=== PATIENT | female | born 1950 | race Caucasian/White ===

== ENCOUNTER 2017-04-11 21:29 | Emergency (ER) | payer OTHER ==
[~2017-04-11] VITALS: Ht 152.4 cm; Wt 75.7 kg
[2017-04-11 22:02] VITALS: Ht 152.4 cm; Wt 75.7 kg
[2017-04-12 01:44] VITALS: BP 128/78
== END 2017-04-12 01:30 | disposition home or self-care (01) ==
LOC: ED 21:29
DX: N12 Tubulo-interstitial nephritis, not specified as acute or chronic (principal); I10 Essential (primary) hypertension; E78.00 Pure hypercholesterolemia, unspecified; E78.5 Hyperlipidemia, unspecified
CPT/HCPCS: J1885

== ENCOUNTER 2017-04-24 11:03 | Emergency (ER) | payer OTHER ==
[2017-04-24 11:54] LABS: CALCIUM 9.9 mg/dL (8.5-10.1); CARBON DIOXIDE 30.9 mmol/L (21-32); CHLORIDE SERUM 103 mmol/L (98-107); CREATININE SERUM 0.7 mg/dL (0.6-1.0); GFR1 > 60 mL/min; GLUCOSE SERUM 103 mg/dL (74-106); POTASSIUM SERUM 4.3 mmol/L (3.5-5.1); SODIUM SERUM 142 mmol/L (136-145)
[2017-04-24 12:00] LABS: ALBUMIN 3.8 g/dL (3.4-5.0); ALKALINE PHOSPHATASE 97 U/L (46-116); ALT/SGPT 48 U/L (14-59); AST/SGOT 22 U/L (15-37); BILIRUBIN TOTAL 0.3 mg/dL (0.20-1.00); TOTAL PROTEIN, SERUM 7.1 g/dL (6.4-8.2)
[2017-04-24 12:29] LABS: BASOPHIL % 0.4 % (0-2)
[2017-04-24 12:31] LABS: PLATELET COUNT 416 x10^3mcL (130-400); RED CELL DISTRIBUTION WIDTH 14.7 % (11.5-14.5)
[2017-04-24 13:06] VITALS: BP 140/71
== END 2017-04-24 13:06 | disposition home or self-care (01) ==
LOC: ED 11:03
PROVIDERS: Emergency Medicine
DX: R07.89 Other chest pain (principal); I10 Essential (primary) hypertension
CPT/HCPCS: 83880; J1885; J2405; Q0092

== ENCOUNTER 2019-09-06 21:10 | Emergency (ER) | payer OTHER ==
[~2019-09-06] VITALS: Ht 154.9 cm; Wt 79.9 kg
[2019-09-06 21:28] VITALS: Ht 154.9 cm; Wt 79.9 kg
[2019-09-06 22:36] VITALS: BP 137/77
== END 2019-09-06 22:05 | disposition home or self-care (01) ==
LOC: ED 21:10
DX: G44.209 Tension-type headache, unspecified, not intractable (principal); I10 Essential (primary) hypertension; E78.00 Pure hypercholesterolemia, unspecified; Z88.6 Allergy status to analgesic agent

== ENCOUNTER 2019-10-19 06:26 | Emergency (ER) | payer OTHER ==
[~2019-10-19] VITALS: Ht 157.5 cm; Wt 78.2 kg
[2019-10-19 06:41] VITALS: Ht 157.5 cm; Wt 78.2 kg
[2019-10-19 07:46] LABS: BASOPHIL % 0.3 % (0-2); PLATELET COUNT 341 x10^3mcL (130-400); RED CELL DISTRIBUTION WIDTH 13.9 % (11.5-14.5)
[2019-10-19 08:15] LABS: CALCIUM 9.5 mg/dL (8.5-10.1); CARBON DIOXIDE 25.5 mmol/L (21-32); CHLORIDE SERUM 104 mmol/L (98-107); CREATININE SERUM 1.1 mg/dL (0.6-1.0); GLUCOSE SERUM 135 mg/dL (74-106); POTASSIUM SERUM 4.3 mmol/L (3.5-5.1); SODIUM SERUM 140 mmol/L (136-145)
[2019-10-19 08:20] LABS: ALBUMIN 3.9 g/dL (3.4-5.0); ALKALINE PHOSPHATASE 116 U/L (46-116); ALT/SGPT 30 U/L (14-59); AST/SGOT 13 U/L (15-37); BILIRUBIN TOTAL 0.42 mg/dL (0.20-1.00); TOTAL PROTEIN, SERUM 7.3 g/dL (6.4-8.2)
[2019-10-19 08:45] VITALS: BP 101/72
== END 2019-10-19 08:45 | disposition home or self-care (01) ==
LOC: ED 06:26
PROVIDERS: Emergency Medicine
DX: N13.2 Hydronephrosis with renal and ureteral calculous obstruction (principal); I10 Essential (primary) hypertension; E11.9 Type 2 diabetes mellitus without complications; E78.00 Pure hypercholesterolemia, unspecified
CPT/HCPCS: J1885; J7030